=== PATIENT | male | born 1970 | race Caucasian/White ===

== ENCOUNTER 2019-10-08 12:14 | Emergency (ER) | payer MEDICAID ==
[~2019-10-08] VITALS: Ht 182.9 cm; Wt 128.6 kg
[~2019-10-08 12:14] MED LIST: TRAM50TA2 PO
[2019-10-08 14:02] VITALS: BP 124/70
== END 2019-10-08 14:38 | disposition home or self-care (01) ==
LOC: ER 12:14
DX: R18.8 Other ascites (principal); R06.02 Shortness of breath; Z72.89 Other problems related to lifestyle; Z91.030 Bee allergy status; Z79.899 Other long term (current) drug therapy
CPT/HCPCS: 49083; 99285

== ENCOUNTER 2019-10-09 19:31 | Inpatient (IN) | payer MEDICAID ==
[~2019-10-09] VITALS: Ht 182.9 cm; Wt 132.5 kg
[2019-10-09 20:24] LABS: EOSINOPHILS # (AUTO) 0.3 X10'3 (0-0.9); EOSINOPHILS % (AUTO) 2.8 % (0-6); MONOCYTES # (AUTO) 1.5 X10'3 (0-0.9)
[2019-10-09 20:25] LABS: BASOPHILS # (AUTO) 0.1 X10'3 (0-0.2); BASOPHILS % (AUTO) 0.5 % (0-1); HEMATOCRIT 30.5 % (42.0-52.0); HEMOGLOBIN 10.7 g/dl (14.0-17.9); LYMPHOCYTES # (AUTO) 0.8 X10'3 (1.1-4.8); LYMPHOCYTES % (AUTO) 7.2 % (21-51); MEAN CORPUSCULAR HEMOGLOBIN 38.4 PG (27.0-31.0); MEAN CORPUSCULAR HGB CONC 35.2 g/dL (33.0-36.5); MEAN CORPUSCULAR VOLUME 108.9 FL (78-98); MEAN PLATELET VOLUME 10.4 FL (7.4-10.4); MONOCYTES % (AUTO) 13.4 % (2-12); NEUTROPHILS # (AUTO) 8.6 X10'3 (1.8-7.7); NEUTROPHILS % (AUTO) 76.1 % (42-75); PLATELET COUNT 98 X10'3 (140-440); RED CELL DISTRIBUTION WIDTH 16.5 % (11.5-14.5); WHITE BLOOD COUNT 11.3 X10'3 (4.5-11.0)
[2019-10-09 20:34] LABS: D-DIMER 7.86 MG/L FEU (0-0.50); PARTIAL THROMBOPLASTIN TIME 43 SECONDS (22-32)
[2019-10-09 20:35] LABS: BLOOD UREA NITROGEN 37 MG/DL (7-18); CHLORIDE 87 MMOL/L (99-107); CREATININE 1.31 MG/DL (0.60-1.10); TOTAL CARBON DIOXIDE 23.8 MMOL/L (24-32)
[2019-10-09 20:36] LABS: ALANINE AMINOTRANSFERASE 85 U/L (12-78); ALBUMIN 2.1 G/DL (3.4-5.0); ALKALINE PHOSPHATASE 214 IU/L (46-116); BILIRUBIN,TOTAL 24.4 MG/DL (0.1-1.0); BUN/CREATININE RATIO 28.2 (5.4-32.0); CALCIUM 8.4 MG/DL (8.5-10.1); eGFR 58 ML/MIN
[2019-10-09 20:40] LABS: ALBUMIN/GLOBULIN RATIO 0.5 (1.1-1.5); LIPASE 1606 U/L (73-393)
[2019-10-09 20:52] LABS: ASPARTATE AMINO TRANSFERASE 215 U/L (10-37)
[2019-10-09 20:53] LABS: ANION GAP 9 (8-16); ETHANOL < 0.010 GM/DL (0.0-0.010); GLUCOSE 161 MG/DL (70-104)
[2019-10-09 20:54] LABS: POTASSIUM 5.5 MMOL/L (3.5-5.1); TOTAL PROTEIN 6.4 G/DL (6.4-8.2)
[2019-10-09 20:59] LABS: SODIUM 120 MMOL/L (135-145)
[2019-10-09 22:22] LABS: TRIGLYCERIDES 51 MG/DL (20-135)
[2019-10-09] MEDS ORDERED: LIDOcaine 2% 10ml TOPICAL JELLY (Urojet) MM ONE (23:30)
[2019-10-09] MEDS ORDERED: dextrose 50%-water 50ml dispensing syringe IV PRN (23:45)
[2019-10-09] MEDS ORDERED: LORazepam 1 MG tablet PO PRN (23:45)
[2019-10-09] MEDS ORDERED: mag hydrox/Alum hydrox/simeth 30ml oral suspension PO PRN (23:45)
[2019-10-09] MEDS ORDERED: ondansetron/PF 4mg/2ml inj IV PRN (23:45)
[2019-10-09] MEDS ORDERED: potassium CL 10mEq/100ml bag 100 ML IV PRN ×2 (23:45)
[2019-10-09] MEDS ORDERED: magnesium 4gm in 100ml NS 100 ML IV PRN (23:45)
[2019-10-09] MEDS ORDERED: haloperidol 5mg tablet PO PRN (23:45)
[2019-10-09] MEDS ORDERED: potassium Cl 20 mEq SR tablet PO PRN ×2 (23:45)
[2019-10-09] MEDS ORDERED: magnesium Cl slow-release 64mg tablet PO PRN (23:45)
[2019-10-09] MEDS ORDERED: acetaminophen 325mg tablet PO PRN (23:45)
[2019-10-09] MEDS ORDERED: thiamine 100mg/ml 2ml inj. IV ONE (23:45)
[2019-10-09] MEDS ORDERED: magnesium hydroxide 30ml (MOM) UD suspension PO PRN (23:45)
[2019-10-09] MEDS ORDERED: LORazepam 2 mg/ml vial IV PRN (23:45)
[2019-10-09] MEDS ORDERED: magnesium 2GM in 50ml NS 50 ML IV PRN (23:45)
[2019-10-10 00:11] LABS: CLARITY,URINE SLIGHTLY CLOUDY (Clear); COLOR,URINE AMBER (Yellow); GLUCOSE, URINE 100 mg/dl (Neg); KETONES,URINE TRACE mg/dl (Neg); LEUKOCYTE ESTERASE ,URINE NEGATIVE (Neg); NITRITES, URINE NEGATIVE (Neg); OCCULT BLOOD,URINE NEGATIVE (Neg); PH,URINE 5.5 (4.8-8.0); PROTEIN,URINE NEGATIVE (Neg); UROBILINOGEN,URINE 0.2 E.U/dL (0.2-1.0)
[2019-10-10 00:13] LABS: UA COLLECTION TYPE FOLEY CATH
[2019-10-10 00:18] LABS: URINE AMPHETAMINE SCREEN NEGATIVE (Neg); URINE BARBITUATE SCREEN NEGATIVE (Neg); URINE BENZODIAZEPINES SCREEN NEGATIVE (Neg); URINE CANNABINOID SCREEN NEGATIVE (Neg); URINE COCAINE SCREEN NEGATIVE (Neg); URINE METHADONE SCREEN NEGATIVE (Neg); URINE OPIATE SCREEN NEGATIVE (Neg); URINE PHENCYCLIDINE SCREEN NEGATIVE (Neg)
[2019-10-10 00:19] LABS: AMORPHOUS URATES 2+; FINE GRANULAR CAST 0-3 /LPF (NEGATIVE)
[2019-10-10 00:21] LABS: SQUAMOUS EPITHELIAL CELL,UR FEW /LPF (FEW); TRANSITIONAL EPI CELLS,URINE FEW /HPF
[2019-10-10 00:28] LABS: OSMOLALITY UA 368 MOSM/K (50-1400)
[2019-10-10 00:29] LABS: BACTERIA,URINE NONE SEEN /HPF (Neg); RBC,URINE NONE SEEN /HPF (0-2); WBC,URINE 0-4 /HPF (0-4)
[2019-10-10 00:30] LABS: SODIUM,URINE RANDOM < 15 MEQ/L
[2019-10-10 01:30] VITALS: BP 123/62
[2019-10-10] MEDS ORDERED: SPIR50TA5 PO (01:42)
[2019-10-10] MEDS ORDERED: BUME1TAB34 PO (01:42)
[2019-10-10] MEDS ORDERED: RIFA550T PO (01:42)
[2019-10-10] MEDS ORDERED: FOLI0.4T2 PO (01:42)
[2019-10-10] MEDS ORDERED: LACT10SO PO (01:42)
[2019-10-10] MEDS ORDERED: CIPR-230 PO (01:42)
[2019-10-10] MEDS ORDERED: SIME125C88 CORPAK (01:42)
[2019-10-10] MEDS ORDERED: TENO300T5 PO (01:42)
[2019-10-10] MEDS ORDERED: THIA100T70 PO (01:42)
[2019-10-10] MEDS ORDERED: thiamine 100mg tablet PO ONE (02:45)
[2019-10-10 05:55] LABS: EOSINOPHILS # (AUTO) 0.3 X10'3 (0-0.9); HEMOGLOBIN 10.6 g/dl (14.0-17.9); MONOCYTES # (AUTO) 1.2 X10'3 (0-0.9); NEUTROPHILS # (AUTO) 7.7 X10'3 (1.8-7.7); RED CELL DISTRIBUTION WIDTH 16.4 % (11.5-14.5)
[2019-10-10] MEDS ORDERED: LIDOcaine 2% 10ml TOPICAL JELLY (Urojet) TP ONE (05:55)
[2019-10-10 05:56] LABS: BASOPHILS % (AUTO) 0.1 % (0-1); EOSINOPHILS % (AUTO) 2.8 % (0-6); HEMATOCRIT 30.1 % (42.0-52.0); LYMPHOCYTES # (AUTO) 0.7 X10'3 (1.1-4.8); LYMPHOCYTES % (AUTO) 7.1 % (21-51); MEAN CORPUSCULAR HEMOGLOBIN 38.2 PG (27.0-31.0); MEAN CORPUSCULAR HGB CONC 35.2 g/dL (33.0-36.5); MEAN CORPUSCULAR VOLUME 108.6 FL (78-98); MEAN PLATELET VOLUME 10.2 FL (7.4-10.4); MONOCYTES % (AUTO) 12.5 % (2-12); NEUTROPHILS % (AUTO) 77.5 % (42-75); PLATELET COUNT 102 X10'3 (140-440); RED BLOOD COUNT 2.77 X10'6 (4.70-6.10)
[2019-10-10 06:00] VITALS: BP 110/45
[2019-10-10 06:07] LABS: ALANINE AMINOTRANSFERASE 85 U/L (12-78); ALBUMIN 2.1 G/DL (3.4-5.0); ALKALINE PHOSPHATASE 205 IU/L (46-116); ANION GAP 4 (8-16); BILIRUBIN,TOTAL 23.9 MG/DL (0.1-1.0); BLOOD UREA NITROGEN 40 MG/DL (7-18); CALCIUM 8.2 MG/DL (8.5-10.1); CHLORIDE 88 MMOL/L (99-107); MAGNESIUM 2.3 MG/DL (1.5-2.4); TOTAL CARBON DIOXIDE 23.7 MMOL/L (24-32)
--- NOTE | 2019-10-10 06:20 | NUR ---
Problems reprioritized. Patient report given, questions answered & plan of care reviewed with Americo RN.
[2019-10-10 06:21] LABS: ALBUMIN/GLOBULIN RATIO 0.5 (1.1-1.5); ASPARTATE AMINO TRANSFERASE 195 U/L (10-37); BUN/CREATININE RATIO 27.2 (5.4-32.0); CREATININE 1.47 MG/DL (0.60-1.10); GLUCOSE 88 MG/DL (70-104); POTASSIUM 5.9 MMOL/L (3.5-5.1); eGFR 51 ML/MIN
[2019-10-10 06:24] LABS: SODIUM 116 MMOL/L (135-145)
--- NOTE | 2019-10-10 06:32 | NUR ---
PAGER ID: [phone] MESSAGE: DR. HERNANDEZ, [id number]/RUDDY, NA+ 116. ANNA [phone]. TY
[2019-10-10] MEDS ORDERED: sodium polystyrene sulfonate 15gm/60ml oral suspension PO ONE (06:35)
--- NOTE | 2019-10-10 06:35 | NUR ---
PAGER ID: [phone] MESSAGE: DR. HERNANDEZ, PLEASE CALL [id number] R/T NEW ORDERS. TY
[2019-10-10] MEDS ORDERED: SODIUM ZIRCONIUM CYCLOSILICATE 10 GM POWD.PACK PO ONE ×3 (06:45→17:25)
[2019-10-10 07:00] LABS: LIPASE 1611 U/L (73-393)
[2019-10-10] MEDS: HYDROcodone/acetaminophen 5mg/325mg tablet PO PRN (07:30)
[2019-10-10] MEDS ORDERED: sodium chloride 3% IV.soln 100 ML IV SCH ×2 (07:40→13:20)
[2019-10-10] MEDS ORDERED: epiNEPHrine 0.1mg/ml 10ml syringe ONE (08:00)
[2019-10-10] MEDS ORDERED: sod chloride 0.9% 10ml flush syringe IV ONE (08:00)
[2019-10-10] MEDS ORDERED: bumetanide 0.25mg/ml 4ml vial IV SCH (08:00)
[2019-10-10] MEDS: K and/or MAG REPLACEMENT MC SCH ×2 (08:00→20:00)
[2019-10-10] MEDS: multivitamins, therapeutics tablet PO SCH (08:38)
[2019-10-10] MEDS: thiamine 100mg tablet PO SCH (08:38)
[2019-10-10] MEDS: folic acid 1mg tablet PO SCH (08:39)
[2019-10-10 10:09] LABS: ANISOCYTOSIS 1+; PLATELET ESTIMATE DECREASED; TOTAL CELLS COUNTED 100
[2019-10-10 10:10] LABS: LARGE PLATELETS FEW; TOXIC GRANULATION 3+
[2019-10-10 10:11] LABS: SMUDGE CELLS FEW
[2019-10-10 11:00] VITALS: BP 100/34
[2019-10-10 11:05] VITALS: BP 110/56
[2019-10-10 11:08] LABS: ANION GAP 6 (8-16); BLOOD UREA NITROGEN 46 MG/DL (7-18); BUN/CREATININE RATIO 24.7 (5.4-32.0); CHLORIDE 87 MMOL/L (99-107); CREATININE 1.86 MG/DL (0.60-1.10); GLUCOSE 85 MG/DL (70-104); TOTAL CARBON DIOXIDE 23.6 MMOL/L (24-32); eGFR 38 ML/MIN
[2019-10-10 11:09] LABS: ALBUMIN 2.1 G/DL (3.4-5.0); CALCIUM 8.2 MG/DL (8.5-10.1)
[2019-10-10 11:10] LABS: SODIUM 117 MMOL/L (135-145)
--- NOTE | 2019-10-10 11:20 | NUR ---
Critical lab values taken from lab, reported to primary RN.
--- NOTE | 2019-10-10 11:27 | NUR ---
PAGER ID: [phone] MESSAGE: DR. MEDINA, [id number], REPEAT NA+ 117, K+ 6.0. ANNA [id number]. TY
[2019-10-10] MEDS ORDERED: sodium chloride 3% IV.soln 100 ML IV ONE (13:26)
--- NOTE | 2019-10-10 14:39 | NUR ---
PAGER ID: [phone] MESSAGE: DR. MEDINA, 2176V/DR. MARY FOX ORDERED NPO THIS AM. MAKING SURE THATS WHAT YOU WANTED. ANNA [id number], HAS CLEAR LIQUID DIET ORDER WITH 1LITER FLUID RESTRICTION. TY
[2019-10-10 15:00] VITALS: BP 107/47
--- NOTE | 2019-10-10 15:05 | NUR ---
DISCUSSED SOMEONE BRINGING HID MEDICATION VIREAD TO HOSPITAL TO BE ADM, RE:WE DON'T HAVE IT HERE. STATES "I WILL CALL SOMEONE TO DO THAT"
--- NOTE | 2019-10-10 15:52 | NUR ---
Patient in room PCU 3024. I have received report from Americo YOUNG and had the opportunity to ask questions and assume patient care. Patient awake in bed and watching TV. No complaints at this time. All immediate needs met.
--- NOTE | 2019-10-10 15:52 | NUR ---
Problems reprioritized. Patient report given, questions answered & plan of care reviewed with HECTOR TA.
--- NOTE | 2019-10-10 15:52 | NUR ---
Patient in room PCU 3024. I have received report from Americo YOUNG and had the opportunity to ask questions and assume patient care.
--- NOTE | 2019-10-10 16:35 | NUR ---
At assumption of care, I agree with previous RN physical assessment.
--- NOTE | 2019-10-10 16:37 | NUR ---
At assumption of care I agree with previous nurse's physical assessment.
[2019-10-10 17:02] LABS: ALBUMIN 2.1 G/DL (3.4-5.0); ANION GAP 7 (8-16); BLOOD UREA NITROGEN 48 MG/DL (7-18); CALCIUM 8.6 MG/DL (8.5-10.1); CHLORIDE 86 MMOL/L (99-107)
[2019-10-10 17:05] LABS: BUN/CREATININE RATIO 23.8 (5.4-32.0); CREATININE 2.02 MG/DL (0.60-1.10); GLUCOSE 80 MG/DL (70-104); POTASSIUM 5.7 MMOL/L (3.5-5.1); eGFR 35 ML/MIN
[2019-10-10 17:07] LABS: SODIUM 116 MMOL/L (135-145)
--- NOTE | 2019-10-10 17:14 | NUR ---
Paged Dr. Archer: PAGER ID: [phone] MESSAGE: RE: Wil Brandt [id number]. Critical lab: Na 116. Thank you. May [id number]
[2019-10-10] MEDS ORDERED: TENOFOVIR DISOPROXIL FUMARATE 300 MG PO ONE (17:40)
[2019-10-10] MEDS ORDERED: normal saline 1000ml 1,000 ML IVB ONE ×2 (17:49→23:35)
[2019-10-10 18:00] VITALS: BP 116/57
--- NOTE | 2019-10-10 18:09 | NUR ---
Problems reprioritized. Patient report given, questions answered & plan of care reviewed with HECTOR Iniguez.
--- NOTE | 2019-10-10 18:09 | NUR ---
Problems reprioritized. Patient report given, questions answered & plan of care reviewed with HECTOR Iniguez. Patient stable at transfer of care.
[2019-10-10 19:18] LABS: BLOOD UREA NITROGEN 50 MG/DL (7-18); BUN/CREATININE RATIO 23.7 (5.4-32.0); CALCIUM 8.3 MG/DL (8.5-10.1); CREATININE 2.11 MG/DL (0.60-1.10); eGFR 33 ML/MIN
[2019-10-10 19:28] LABS: GLUCOSE 143 MG/DL (70-104); POTASSIUM 5.6 MMOL/L (3.5-5.1)
[2019-10-10 19:31] LABS: ANION GAP 9 (8-16); CHLORIDE 85 MMOL/L (99-107)
[2019-10-10 19:34] LABS: SODIUM 117 MMOL/L (135-145)
[2019-10-10] MEDS: rifaximin 550mg tablet PO SCH (20:08)
[2019-10-10] MEDS: lactulose 20gm/30ml cup PO SCH (20:08)
[2019-10-10 20:20] LABS: CLARITY,URINE CLOUDY (Clear); COLOR,URINE AMBER (Yellow); GLUCOSE, URINE 100 mg/dl (Neg); KETONES,URINE TRACE mg/dl (Neg); LEUKOCYTE ESTERASE ,URINE SMALL (Neg); NITRITES, URINE POSITIVE (Neg); OCCULT BLOOD,URINE LARGE (Neg); PH,URINE 6.5 (4.8-8.0); PROTEIN,URINE >=300 mg/dl (Neg)
[2019-10-10 20:33] LABS: UA COLLECTION TYPE CLN CATCH MIDSTREAM
[2019-10-10 20:36] LABS: RBC,URINE TNTC /HPF (0-2)
[2019-10-10 20:37] LABS: SQUAMOUS EPITHELIAL CELL,UR MODERATE /LPF (FEW); TRANSITIONAL EPI CELLS,URINE MODERATE /HPF
[2019-10-10 20:38] LABS: AMORPHOUS URATES 2+; BACTERIA,URINE FEW /HPF (Neg); WBC,URINE 0-4 /HPF (0-4)
[2019-10-10 20:39] LABS: CAL OXALATE CRYSTALS 1+ /HPF (NEGATIVE)
--- NOTE | 2019-10-10 21:32 | NUR ---
called lab to check on urine lab results. was just informed that the sample sent earlier did not have enough volume to run some of the labs. Lab did not relay this information before liter bolus given. waiting for urine to collect to send next sample.
[2019-10-10 21:58] LABS: UA EOSINOPHILS NO EOS /HPF
[2019-10-10 22:55] LABS: OSMOLALITY UA 324 MOSM/K (50-1400)
[2019-10-10 22:57] LABS: SODIUM,URINE RANDOM < 15 MEQ/L
[2019-10-10 23:06] LABS: ANION GAP 7 (8-16); BLOOD UREA NITROGEN 53 MG/DL (7-18); BUN/CREATININE RATIO 25.6 (5.4-32.0); CALCIUM 8.1 MG/DL (8.5-10.1); CHLORIDE 86 MMOL/L (99-107); CREATININE 2.07 MG/DL (0.60-1.10); GLUCOSE 122 MG/DL (70-104); POTASSIUM 5.5 MMOL/L (3.5-5.1); eGFR 34 ML/MIN
[2019-10-10 23:07] LABS: SODIUM 115 MMOL/L (135-145)
--- NOTE | 2019-10-10 23:55 | NUR ---
na 115, orders to repeat NS bolus and recheck labs
--- NOTE | 2019-10-11 01:07 | NUR ---
iv went bad in middle of bolus, new iv started and bolus now finishing. bed bath given, linens changed. abdominal dressings changed, old ones were saturated with yellow drainage, had been leaking also to bed.
[2019-10-11 01:58] LABS: BASOPHILS # (AUTO) 0.1 X10'3 (0-0.2); BASOPHILS % (AUTO) 0.5 % (0-1); EOSINOPHILS # (AUTO) 0.3 X10'3 (0-0.9); EOSINOPHILS % (AUTO) 2.4 % (0-6); HEMATOCRIT 30.8 % (42.0-52.0); HEMOGLOBIN 10.8 g/dl (14.0-17.9); MEAN CORPUSCULAR HEMOGLOBIN 38.7 PG (27.0-31.0); MEAN CORPUSCULAR HGB CONC 34.9 g/dL (33.0-36.5); MEAN CORPUSCULAR VOLUME 111.1 FL (78-98); MEAN PLATELET VOLUME 10.1 FL (7.4-10.4); MONOCYTES # (AUTO) 1.1 X10'3 (0-0.9); MONOCYTES % (AUTO) 10.6 % (2-12); NEUTROPHILS # (AUTO) 8.2 X10'3 (1.8-7.7); NEUTROPHILS % (AUTO) 77.5 % (42-75); PLATELET COUNT 103 X10'3 (140-440); RED BLOOD COUNT 2.78 X10'6 (4.70-6.10); RED CELL DISTRIBUTION WIDTH 16.2 % (11.5-14.5); WHITE BLOOD COUNT 10.6 X10'3 (4.5-11.0)
[2019-10-11 02:00] VITALS: BP 120/55
[2019-10-11 02:21] LABS: ALANINE AMINOTRANSFERASE 85 U/L (12-78); ALKALINE PHOSPHATASE 199 IU/L (46-116); ANION GAP 8 (8-16); CALCIUM 7.8 MG/DL (8.5-10.1); CHLORIDE 86 MMOL/L (99-107); CREATININE 2.02 MG/DL (0.60-1.10); MAGNESIUM 2.3 MG/DL (1.5-2.4); TOTAL CARBON DIOXIDE 21.7 MMOL/L (24-32); eGFR 35 ML/MIN
[2019-10-11 02:32] LABS: OSMOLALITY UA 318 MOSM/K (50-1400)
[2019-10-11 02:36] LABS: SODIUM,URINE RANDOM < 15 MEQ/L
[2019-10-11 02:39] LABS: ASPARTATE AMINO TRANSFERASE 224 U/L (10-37)
[2019-10-11 02:41] LABS: ALBUMIN/GLOBULIN RATIO 0.4 (1.1-1.5); BLOOD UREA NITROGEN 51 MG/DL (7-18); BUN/CREATININE RATIO 25.2 (5.4-32.0); GLUCOSE 103 MG/DL (70-104); PHOSPHORUS 5.7 MG/DL (2.3-4.5); TOTAL PROTEIN 6.9 G/DL (6.4-8.2)
[2019-10-11 02:51] LABS: BILIRUBIN,TOTAL 27.2 MG/DL (0.1-1.0); POTASSIUM 5.3 MMOL/L (3.5-5.1); SODIUM 116 MMOL/L (135-145)
[2019-10-11 03:45] LABS: TOTAL CELLS COUNTED 100
[2019-10-11 03:46] LABS: ANISOCYTOSIS 1+; BURR CELLS 1+; PLATELET ESTIMATE DECREASED; TARGET CELLS FEW
[2019-10-11 05:10] LABS: ALBUMIN 2.1 G/DL (3.4-5.0); ANION GAP 7 (8-16); BLOOD UREA NITROGEN 54 MG/DL (7-18); CHLORIDE 87 MMOL/L (99-107); TOTAL CARBON DIOXIDE 22.3 MMOL/L (24-32)
[2019-10-11 05:11] LABS: BUN/CREATININE RATIO 25.1 (5.4-32.0); CREATININE 2.15 MG/DL (0.60-1.10); GLUCOSE 95 MG/DL (70-104); POTASSIUM 5.3 MMOL/L (3.5-5.1); eGFR 33 ML/MIN
[2019-10-11 05:14] LABS: SODIUM 116 MMOL/L (135-145)
--- NOTE | 2019-10-11 06:14 | NUR ---
Patient in room PCU 3024. I have received report from Geetha YOUNG and had the opportunity to ask questions and assume patient care. Patient awake in bed with no complaints at this time. All immediate needs met.
--- NOTE | 2019-10-11 06:14 | NUR ---
Problems reprioritized. Patient report given, questions answered & plan of care reviewed with Bushra YOUNG.
--- NOTE | 2019-10-11 06:30 | NUR ---
Patient in room PCU 3024. I have received report from Geetha YOUNG and had the opportunity to ask questions and assume patient care. Patient was resting comfortably in bed and no needs at this time. Will continue to monitor.
[2019-10-11 07:00] VITALS: BP 120/62
[2019-10-11] MEDS ORDERED: TENOFOVIR DISOPROXIL FUMARATE 300 MG PO SCH (08:00)
[2019-10-11] MEDS ORDERED: folic acid 1mg tablet PO SCH (08:00)
[2019-10-11] MEDS: K and/or MAG REPLACEMENT MC SCH ×2 (08:00→20:00)
[2019-10-11 08:48] LABS: LIPASE 1715 U/L (73-393)
[2019-10-11] MEDS: multivitamins, therapeutics tablet PO SCH (08:55)
[2019-10-11] MEDS: lactulose 20gm/30ml cup PO SCH ×3 (08:55→21:13)
[2019-10-11] MEDS: folic acid 1mg tablet PO SCH (08:56)
[2019-10-11] MEDS: rifaximin 550mg tablet PO SCH ×2 (09:40→21:13)
[2019-10-11] MEDS: thiamine 100mg tablet PO SCH (09:40)
[2019-10-11] MEDS: albumin (human) 25% 100 ML IV solution IV SCH ×2 (09:42→21:13)
[2019-10-11 11:00] VITALS: BP 126/67
[2019-10-11 11:01] LABS: ALBUMIN 2.3 G/DL (3.4-5.0); ANION GAP 6 (8-16); BLOOD UREA NITROGEN 57 MG/DL (7-18); CALCIUM 7.9 MG/DL (8.5-10.1); CHLORIDE 86 MMOL/L (99-107); SODIUM 115 MMOL/L (135-145); TOTAL CARBON DIOXIDE 22.9 MMOL/L (24-32)
[2019-10-11 11:02] LABS: BUN/CREATININE RATIO 24.7 (5.4-32.0); CREATININE 2.31 MG/DL (0.60-1.10); GLUCOSE 114 MG/DL (70-104); POTASSIUM 5.2 MMOL/L (3.5-5.1); eGFR 30 ML/MIN
--- NOTE | 2019-10-11 11:10 | NUR ---
Critical lab: Sodium 115. Notified Dr. Recio.
--- NOTE | 2019-10-11 11:15 | NUR ---
Wound care came and addressed puncture sites from paracentesis. Attached drainage bags and attached to Mckeon bags for drainage, skin is dry
[2019-10-11 15:00] VITALS: BP 121/62
[2019-10-11 17:04] LABS: ALBUMIN 2.5 G/DL (3.4-5.0); ANION GAP 6 (8-16); BLOOD UREA NITROGEN 58 MG/DL (7-18); CALCIUM 8.3 MG/DL (8.5-10.1); CHLORIDE 86 MMOL/L (99-107); TOTAL CARBON DIOXIDE 21.8 MMOL/L (24-32)
[2019-10-11 17:23] LABS: SODIUM 114 MMOL/L (135-145)
[2019-10-11 17:27] LABS: BUN/CREATININE RATIO 27.6 (5.4-32.0); GLUCOSE 104 MG/DL (70-104); eGFR 33 ML/MIN
--- NOTE | 2019-10-11 17:29 | NUR ---
Critical lab: Sodium 114. Notified Dr. Recio
--- NOTE | 2019-10-11 18:09 | NUR ---
Problems reprioritized. Patient report given, questions answered & plan of care reviewed with HECTOR Iniguez. Patient stable at transfer of care.
--- NOTE | 2019-10-11 18:09 | NUR ---
Problems reprioritized. Patient report given, questions answered & plan of care reviewed with Geetha YOUNG. Patient was stable at transfer.
--- NOTE | 2019-10-11 18:35 | NUR ---
[place] documentation: I have reviewed and agree with all interventions, assessments performed and documented by Betina YOUNG. [place] Medication Administration: For this medication-pass time frame, all medication were reviewed, dispensed, administered and documented per hospital policy by HECTOR Moffett.
[2019-10-11 18:55] VITALS: BP 116/62
[2019-10-11 23:04] LABS: ALBUMIN 3.1 G/DL (3.4-5.0); ANION GAP 11 (8-16); BLOOD UREA NITROGEN 58 MG/DL (7-18); BUN/CREATININE RATIO 26.1 (5.4-32.0); CALCIUM 8.3 MG/DL (8.5-10.1); CHLORIDE 83 MMOL/L (99-107); CREATININE 2.22 MG/DL (0.60-1.10); eGFR 31 ML/MIN
[2019-10-11 23:09] LABS: GLUCOSE 116 MG/DL (70-104)
[2019-10-11 23:10] LABS: SODIUM 114 MMOL/L (135-145)
[2019-10-12 03:05] VITALS: BP 102/53
[2019-10-12 05:58] LABS: ALANINE AMINOTRANSFERASE 76 U/L (12-78); ALBUMIN 2.8 G/DL (3.4-5.0); ALKALINE PHOSPHATASE 165 IU/L (46-116); ANION GAP 11 (8-16); BLOOD UREA NITROGEN 61 MG/DL (7-18); BUN/CREATININE RATIO 23.7 (5.4-32.0); CALCIUM 8.2 MG/DL (8.5-10.1); CHLORIDE 83 MMOL/L (99-107); CREATININE 2.57 MG/DL (0.60-1.10); MAGNESIUM 2.6 MG/DL (1.5-2.4); TOTAL CARBON DIOXIDE 20.7 MMOL/L (24-32); eGFR 27 ML/MIN
[2019-10-12 06:18] LABS: ASPARTATE AMINO TRANSFERASE 176 U/L (10-37); GLUCOSE 94 MG/DL (70-104); LIPASE 2559 U/L (73-393); POTASSIUM 5.2 MMOL/L (3.5-5.1); TOTAL PROTEIN 5.7 G/DL (6.4-8.2)
[2019-10-12 06:24] LABS: SODIUM 115 MMOL/L (135-145)
--- NOTE | 2019-10-12 06:33 | NUR ---
PT WOKE A LITTLE CONFUSED, POSSIBLY DUE TO THE ATIVAN LAST NIGHT. REORIENTED EASILY. UP TO COMMODE. PT WIPED SELF DOWN WITH WIPES. SETTLED PT TO CHAIR.
--- NOTE | 2019-10-12 06:38 | NUR ---
Problems reprioritized. Patient report given, questions answered & plan of care reviewed with Rafael YOUNG.
--- NOTE | 2019-10-12 06:44 | NUR ---
Patient in room PCU 3024. I have received report from Geetha YOUNG and had the opportunity to ask questions and assume patient care. Patient resting with no needs at this time.
--- NOTE | 2019-10-12 06:49 | NUR ---
Critical value Na 115, reported to July, no new orders at this time
[2019-10-12 06:53] LABS: BASOPHILS % (AUTO) 0.3 % (0-1); EOSINOPHILS # (AUTO) 0.2 X10'3 (0-0.9); EOSINOPHILS % (AUTO) 3.5 % (0-6); HEMATOCRIT 27.4 % (42.0-52.0); HEMOGLOBIN 9.7 g/dl (14.0-17.9); LYMPHOCYTES # (AUTO) 0.6 X10'3 (1.1-4.8); LYMPHOCYTES % (AUTO) 8.4 % (21-51); MEAN CORPUSCULAR HEMOGLOBIN 38.9 PG (27.0-31.0); MEAN CORPUSCULAR HGB CONC 35.4 g/dL (33.0-36.5); MEAN CORPUSCULAR VOLUME 110.1 FL (78-98); MEAN PLATELET VOLUME 9.6 FL (7.4-10.4); MONOCYTES # (AUTO) 0.9 X10'3 (0-0.9); MONOCYTES % (AUTO) 12.3 % (2-12); NEUTROPHILS # (AUTO) 5.3 X10'3 (1.8-7.7); NEUTROPHILS % (AUTO) 75.5 % (42-75); PLATELET COUNT 74 X10'3 (140-440); RED BLOOD COUNT 2.49 X10'6 (4.70-6.10); RED CELL DISTRIBUTION WIDTH 16.1 % (11.5-14.5)
[2019-10-12 07:37] VITALS: BP 104/49
[2019-10-12 07:59] LABS: ANISOCYTOSIS 1+; PLATELET ESTIMATE DECREASED
[2019-10-12 08:00] LABS: ACANTHOCYTES FEW; ELLIPTOCYTES FEW
[2019-10-12] MEDS: K and/or MAG REPLACEMENT MC SCH ×2 (08:00→20:00)
[2019-10-12 08:02] LABS: BURR CELLS 2+
[2019-10-12] MEDS: lactulose 20gm/30ml cup PO SCH ×3 (09:50→20:48)
[2019-10-12] MEDS: rifaximin 550mg tablet PO SCH ×2 (09:51→20:48)
[2019-10-12] MEDS: folic acid 1mg tablet PO SCH (09:51)
[2019-10-12] MEDS: multivitamins, therapeutics tablet PO SCH (09:51)
[2019-10-12] MEDS: thiamine 100mg tablet PO SCH (09:51)
[2019-10-12] MEDS: albumin (human) 25% 100 ML IV solution IV SCH ×2 (10:29→20:49)
--- NOTE | 2019-10-12 10:50 | NUR ---
Verbal order per Dr. Archer to D/C [place] due to patient's family unable to supply medication.
--- NOTE | 2019-10-12 11:21 | NUR ---
Returned call to patient's , Natasha. No answer, left message for retune call.
[2019-10-12] MEDS: midodrine tablet 2.5 MG TABLET PO SCH (16:46)
[2019-10-12] MEDS: octreotide 100mcg/1 ml ampule SQ SCH (16:57)
--- NOTE | 2019-10-12 17:38 | NUR ---
Nasopharanygeal swab done per MD order. Patient tolerated well. Specimen taken to lab.
[2019-10-12 17:44] VITALS: BP 110/64
--- NOTE | 2019-10-12 18:24 | NUR ---
Problems reprioritized. Patient report given, questions answered & plan of care reviewed with Nu YOUNG.
--- NOTE | 2019-10-12 18:34 | NUR ---
Received call from [facility]. Per current regulation, patient has been declined transfer due to patient not currently being on transplant list. Dr. Archer notified patient adn Dr. Recio. assistant guest services manager notified.
[2019-10-12 19:00] VITALS: BP 124/70
[2019-10-13] MEDS ORDERED: Melatonin 3mg tablet PO PRN
[2019-10-13] MEDS: octreotide 100mcg/1 ml ampule SQ SCH ×4 (00:37→23:52)
[2019-10-13] MEDS: midodrine tablet 2.5 MG TABLET PO SCH ×4 (00:37→23:52)
[2019-10-13 02:00] VITALS: BP 108/54
[2019-10-13] MEDS: HYDROcodone/acetaminophen 5mg/325mg tablet PO PRN ×2 (03:19→22:08)
[2019-10-13] MEDS: morphine 2 MG/ML inj. syringe IV PRN ×2 (03:57→08:15)
[2019-10-13 06:07] LABS: ALANINE AMINOTRANSFERASE 66 U/L (12-78); ALBUMIN 3.1 G/DL (3.4-5.0); ALKALINE PHOSPHATASE 146 IU/L (46-116); ANION GAP 9 (8-16); BLOOD UREA NITROGEN 66 MG/DL (7-18); BUN/CREATININE RATIO 26.6 (5.4-32.0); CALCIUM 8.3 MG/DL (8.5-10.1); CHLORIDE 84 MMOL/L (99-107); CREATININE 2.48 MG/DL (0.60-1.10); LIPASE 1261 U/L (73-393); TOTAL CARBON DIOXIDE 20.9 MMOL/L (24-32); eGFR 28 ML/MIN
[2019-10-13 06:10] LABS: ALBUMIN/GLOBULIN RATIO 1.3 (1.1-1.5); ASPARTATE AMINO TRANSFERASE 151 U/L (10-37); GLUCOSE 93 MG/DL (70-104); MAGNESIUM 2.6 MG/DL (1.5-2.4); POTASSIUM 4.8 MMOL/L (3.5-5.1); TOTAL PROTEIN 5.5 G/DL (6.4-8.2)
[2019-10-13 06:14] LABS: SODIUM 114 MMOL/L (135-145)
--- NOTE | 2019-10-13 06:41 | NUR ---
Problems reprioritized. Patient report given, questions answered & plan of care reviewed with Denia YOUNG.
--- NOTE | 2019-10-13 06:43 | NUR ---
Patient in room PCU 3024. I have received report from HECTOR Judge and had the opportunity to ask questions and assume patient care.
[2019-10-13 06:48] LABS: BASOPHILS % (AUTO) 0.2 % (0-1); EOSINOPHILS # (AUTO) 0.1 X10'3 (0-0.9); EOSINOPHILS % (AUTO) 1.2 % (0-6); HEMATOCRIT 28.2 % (42.0-52.0); HEMOGLOBIN 9.9 g/dl (14.0-17.9); LYMPHOCYTES # (AUTO) 0.4 X10'3 (1.1-4.8); LYMPHOCYTES % (AUTO) 7.3 % (21-51); MEAN CORPUSCULAR HEMOGLOBIN 38.6 PG (27.0-31.0); MEAN CORPUSCULAR HGB CONC 35.3 g/dL (33.0-36.5); MEAN CORPUSCULAR VOLUME 109.4 FL (78-98); MEAN PLATELET VOLUME 10.2 FL (7.4-10.4); MONOCYTES # (AUTO) 0.1 X10'3 (0-0.9); MONOCYTES % (AUTO) 2.8 % (2-12); NEUTROPHILS # (AUTO) 4.4 X10'3 (1.8-7.7); NEUTROPHILS % (AUTO) 88.5 % (42-75); PLATELET COUNT 68 X10'3 (140-440); RED BLOOD COUNT 2.58 X10'6 (4.70-6.10)
[2019-10-13 07:00] VITALS: BP 112/50
[2019-10-13] MEDS: K and/or MAG REPLACEMENT MC SCH ×2 (08:00→20:00)
[2019-10-13] MEDS: multivitamins, therapeutics tablet PO SCH (08:16)
[2019-10-13] MEDS: thiamine 100mg tablet PO SCH (08:17)
[2019-10-13] MEDS: rifaximin 550mg tablet PO SCH ×2 (08:17→20:29)
[2019-10-13] MEDS: folic acid 1mg tablet PO SCH (08:18)
[2019-10-13] MEDS: lactulose 20gm/30ml cup PO SCH ×3 (08:18→20:29)
[2019-10-13] MEDS: albumin (human) 25% 100 ML IV solution IV SCH ×2 (08:20→20:35)
[2019-10-13 08:21] LABS: PLATELET ESTIMATE DECREASED
[2019-10-13 08:23] LABS: BURR CELLS 2+; SCHISTOCYTES FEW
[2019-10-13 11:00] VITALS: BP 130/78
--- NOTE | 2019-10-13 11:23 | NUR ---
Spoke with office staff of Dr. Richardson ([employer]) regarding patient. Updated on current labs. She would like me to have Dr call the Dr transportation maintenance specialist (Dr Caldwell) at [facility] about bed placement. Will page Dr Archer regarding this information.
--- NOTE | 2019-10-13 11:33 | NUR ---
Paged Dr Archer PAGER ID: [phone] MESSAGE: Re: Wil King [id number] at [facility] would like you to call him (Dr Caldwell , option #9) Thanks Denia Negron [phone]
[2019-10-13 14:42] LABS: OSMOLALITY UA 291 MOSM/K (50-1400)
[2019-10-13 14:46] LABS: SODIUM,URINE RANDOM 25 MEQ/L
[2019-10-13 15:00] VITALS: BP 123/61
[2019-10-13] MEDS ORDERED: phytonadione inj. 10 MG in normal saline 100ml IV soln 99 ML IV ONE (17:50)
--- NOTE | 2019-10-13 17:58 | NUR ---
Paged xray Re: Wil Brandt [id number] Pt needs a stat chest xray. Thanks
--- NOTE | 2019-10-13 17:59 | NUR ---
Paged Respiratory Re: Wil García Rm [id number] Pt needs to be placed on Bipap stat. Thanks
[2019-10-13 18:00] VITALS: BP 144/60
[2019-10-13] MEDS ORDERED: HUMAN PROTHROMBIN COMPLEX PCC IV ONE (18:00)
--- NOTE | 2019-10-13 18:00 | NUR ---
Patient in room PCU 3024. I have received report from Denia YOUNG and had the opportunity to ask questions and assume patient care.
--- NOTE | 2019-10-13 18:54 | NUR ---
Problems reprioritized. Patient report given, questions answered & plan of care reviewed with HECTOR Cortez. All patient needs met at this time.
[2019-10-13] MEDS: lactobacillus rhamnosus 10,000 MMU CELLS/CAPSULE PO SCH (20:30)
[2019-10-13 22:00] VITALS: BP 131/83
[2019-10-14] VITALS (11 sets, daily range): BP systolic 115–145; BP diastolic 54–76
[2019-10-14 06:00] LABS: BASOPHILS % (AUTO) 0.1 % (0-1); EOSINOPHILS % (AUTO) 0 % (0-6); LYMPHOCYTES # (AUTO) 0.3 X10'3 (1.1-4.8); NEUTROPHILS # (AUTO) 9.7 X10'3 (1.8-7.7); WHITE BLOOD COUNT 10.7 X10'3 (4.5-11.0)
[2019-10-14 06:02] LABS: LYMPHOCYTES % (AUTO) 2.6 % (21-51); MEAN PLATELET VOLUME 10.4 FL (7.4-10.4); MONOCYTES # (AUTO) 0.8 X10'3 (0-0.9); MONOCYTES % (AUTO) 7.1 % (2-12); NEUTROPHILS % (AUTO) 90.2 % (42-75); PLATELET COUNT 52 X10'3 (140-440)
--- NOTE | 2019-10-14 06:07 | NUR ---
Problems reprioritized. Patient report given, questions answered & plan of care reviewed with Sakina YOUNG.
[2019-10-14 06:16] LABS: ALANINE AMINOTRANSFERASE 72 U/L (12-78); ALBUMIN 3.8 G/DL (3.4-5.0); ALKALINE PHOSPHATASE 139 IU/L (46-116); ANION GAP 12 (8-16); ASPARTATE AMINO TRANSFERASE 161 U/L (10-37); BILIRUBIN,TOTAL 38.2 MG/DL (0.1-1.0); BLOOD UREA NITROGEN 72 MG/DL (7-18); BUN/CREATININE RATIO 20.5 (5.4-32.0); CALCIUM 8.6 MG/DL (8.5-10.1); CHLORIDE 83 MMOL/L (99-107); CREATININE 3.52 MG/DL (0.60-1.10); GLUCOSE 83 MG/DL (70-104); LIPASE 818 U/L (73-393); MAGNESIUM 2.8 MG/DL (1.5-2.4); POTASSIUM 5.6 MMOL/L (3.5-5.1); TOTAL CARBON DIOXIDE 19.3 MMOL/L (24-32); eGFR 18 ML/MIN
[2019-10-14 06:29] LABS: SODIUM 114 MMOL/L (135-145)
--- NOTE | 2019-10-14 06:40 | NUR ---
Critical Na of 114. Tried calling Dr. Weston with the critical lab value, but the phone is busy. Will call again.
--- NOTE | 2019-10-14 06:40 | NUR ---
Patient in room PCU 3024. I have received report from HECTOR Cortez and had the opportunity to ask questions and assume patient care. Patient awake in bed and in no acute distress.
[2019-10-14 06:45] LABS: ALBUMIN/GLOBULIN RATIO 1.5 (1.1-1.5); TOTAL PROTEIN 6.3 G/DL (6.4-8.2)
[2019-10-14 06:53] LABS: HEMATOCRIT 26.5 % (42.0-52.0); HEMOGLOBIN 9.3 g/dl (14.0-17.9); MEAN CORPUSCULAR HEMOGLOBIN 38.8 PG (27.0-31.0); MEAN CORPUSCULAR HGB CONC 35.3 g/dL (33.0-36.5); MEAN CORPUSCULAR VOLUME 109.8 FL (78-98); RED BLOOD COUNT 2.41 X10'6 (4.70-6.10); RED CELL DISTRIBUTION WIDTH 15.9 % (11.5-14.5)
[2019-10-14 06:56] LABS: ANISOCYTOSIS 1+; BURR CELLS 2+; PLATELET ESTIMATE DECREASED; SCHISTOCYTES FEW
--- NOTE | 2019-10-14 07:18 | NUR ---
Paged Dr. Archer regarding patient's critical Na. PAGER ID: [phone] MESSAGE: [phone]. Wil Brandt. Critical lab value of 114 again today. Thank you. Sakina YOUNG x [phone]
[2019-10-14] MEDS: K and/or MAG REPLACEMENT MC SCH ×2 (08:00→20:00)
[2019-10-14] MEDS: albumin (human) 25% 100 ML IV solution IV SCH ×2 (09:00→19:03)
[2019-10-14] MEDS: lactobacillus rhamnosus 10,000 MMU CELLS/CAPSULE PO SCH ×2 (09:01→19:04)
[2019-10-14] MEDS: lactulose 20gm/30ml cup PO SCH ×3 (09:01→19:03)
[2019-10-14] MEDS: folic acid 1mg tablet PO SCH (09:01)
[2019-10-14] MEDS: multivitamins, therapeutics tablet PO SCH (09:02)
[2019-10-14] MEDS: thiamine 100mg tablet PO SCH (09:03)
[2019-10-14] MEDS: midodrine tablet 2.5 MG TABLET PO SCH ×3 (09:03→23:28)
[2019-10-14] MEDS: octreotide 100mcg/1 ml ampule SQ SCH ×3 (09:04→23:28)
[2019-10-14] MEDS: rifaximin 550mg tablet PO SCH ×2 (09:09→19:04)
[2019-10-14 15:59] LABS: ANION GAP 11 (8-16); BLOOD UREA NITROGEN 76 MG/DL (7-18); BUN/CREATININE RATIO 21.5 (5.4-32.0); CHLORIDE 84 MMOL/L (99-107); CREATININE 3.53 MG/DL (0.60-1.10); GLUCOSE 105 MG/DL (70-104); POTASSIUM 5.3 MMOL/L (3.5-5.1); TOTAL CARBON DIOXIDE 19.7 MMOL/L (24-32)
[2019-10-14 16:00] LABS: ALBUMIN 3.4 G/DL (3.4-5.0); CALCIUM 8.7 MG/DL (8.5-10.1); eGFR 18 ML/MIN
[2019-10-14 16:02] LABS: SODIUM 115 MMOL/L (135-145)
--- NOTE | 2019-10-14 16:16 | NUR ---
Paged Dr. Archer regarding critical Na PAGER ID: [phone] MESSAGE: [phone]. Wil Brandt. Critical lab of Na of 115. Thank you. Sakina YOUNG x [phone]
[2019-10-14] MEDS: morphine 2 MG/ML inj. syringe IV PRN ×2 (17:01→21:38)
--- NOTE | 2019-10-14 17:18 | NUR ---
Initial: patient admitted with hyponatremia history of hepatitis C, cirrhosis, EtOH, and meth. Recently had 4 liters removed by paracentesis prior to admission and another large volume paracentesis today per MD notes. MCV is 109.8, may be indicative of a folic acid or Vitamin B12 deficiency; he is receiving a multivitamin and folic acid. Sodium is low, MD is aware and reports urine osmolality has gone down. Great appetite, eating 75-100% average PO intake. Meeting nutrition needs. Recommend: 1. Continue regular diet 2. continue folic acid, thiamine, and multivitamin 3. weight per rx 4. routine bowel care Addendum: 10/14/19 at [address] Amended: Links added.
--- NOTE | 2019-10-14 18:00 | NUR ---
Patient in room PCU 3024. I have received report from nani YOUNG and had the opportunity to ask questions and assume patient care.
--- NOTE | 2019-10-14 18:08 | NUR ---
Problems reprioritized. Patient report given, questions answered & plan of care reviewed with HECTOR Cortez. Patient stable at transfer of care.
[2019-10-15 02:00] VITALS: BP 117/43
[2019-10-15] MEDS: morphine 2 MG/ML inj. syringe IV PRN ×2 (03:44→20:37)
--- NOTE | 2019-10-15 06:04 | NUR ---
Problems reprioritized. Patient report given, questions answered & plan of care reviewed with Sakina YOUNG.
[2019-10-15 06:21] LABS: BASOPHILS % (AUTO) 0.1 % (0-1); EOSINOPHILS % (AUTO) 0.1 % (0-6); HEMATOCRIT 23.6 % (42.0-52.0); HEMOGLOBIN 8.3 g/dl (14.0-17.9); LYMPHOCYTES # (AUTO) 0.3 X10'3 (1.1-4.8); LYMPHOCYTES % (AUTO) 1.9 % (21-51); MEAN CORPUSCULAR HEMOGLOBIN 38.6 PG (27.0-31.0); MEAN CORPUSCULAR HGB CONC 35.3 g/dL (33.0-36.5); MEAN CORPUSCULAR VOLUME 109.4 FL (78-98); MEAN PLATELET VOLUME 11.4 FL (7.4-10.4); MONOCYTES # (AUTO) 1.1 X10'3 (0-0.9); NEUTROPHILS # (AUTO) 12.2 X10'3 (1.8-7.7); NEUTROPHILS % (AUTO) 89.9 % (42-75); PLATELET COUNT 57 X10'3 (140-440); RED BLOOD COUNT 2.16 X10'6 (4.70-6.10); RED CELL DISTRIBUTION WIDTH 15.9 % (11.5-14.5); WHITE BLOOD COUNT 13.6 X10'3 (4.5-11.0)
[2019-10-15 06:30] LABS: ALANINE AMINOTRANSFERASE 61 U/L (12-78); ALBUMIN 3.4 G/DL (3.4-5.0); ALKALINE PHOSPHATASE 108 IU/L (46-116); ANION GAP 12 (8-16); BLOOD UREA NITROGEN 82 MG/DL (7-18); BUN/CREATININE RATIO 19.4 (5.4-32.0); CALCIUM 8.4 MG/DL (8.5-10.1); CHLORIDE 83 MMOL/L (99-107); CREATININE 4.22 MG/DL (0.60-1.10); LIPASE 1206 U/L (73-393); eGFR 15 ML/MIN
[2019-10-15 06:42] LABS: ASPARTATE AMINO TRANSFERASE 147 U/L (10-37)
[2019-10-15 06:45] LABS: ALBUMIN/GLOBULIN RATIO 1.7 (1.1-1.5); BILIRUBIN,TOTAL 32.6 MG/DL (0.1-1.0); GLUCOSE 72 MG/DL (70-104); MAGNESIUM 2.7 MG/DL (1.5-2.4); POTASSIUM 5.8 MMOL/L (3.5-5.1); TOTAL PROTEIN 5.4 G/DL (6.4-8.2)
[2019-10-15 06:48] LABS: SODIUM 115 MMOL/L (135-145)
[2019-10-15 07:00] VITALS: BP 108/51
[2019-10-15 07:09] LABS: LARGE PLATELETS FEW; PLATELET ESTIMATE DECREASED
[2019-10-15 07:10] LABS: BURR CELLS 2+
[2019-10-15] MEDS: lactulose 20gm/30ml cup PO SCH ×3 (07:42→20:37)
[2019-10-15] MEDS: multivitamins, therapeutics tablet PO SCH (07:42)
[2019-10-15] MEDS: albumin (human) 25% 100 ML IV solution IV SCH ×2 (07:42→20:00)
[2019-10-15] MEDS: folic acid 1mg tablet PO SCH (07:42)
[2019-10-15] MEDS: lactobacillus rhamnosus 10,000 MMU CELLS/CAPSULE PO SCH ×2 (07:42→20:37)
[2019-10-15] MEDS: rifaximin 550mg tablet PO SCH ×2 (07:43→20:37)
[2019-10-15] MEDS: midodrine tablet 2.5 MG TABLET PO SCH ×2 (07:43→17:07)
[2019-10-15] MEDS: K and/or MAG REPLACEMENT MC SCH ×2 (07:43→20:00)
[2019-10-15] MEDS: thiamine 100mg tablet PO SCH (07:43)
[2019-10-15] MEDS: octreotide 100mcg/1 ml ampule SQ SCH ×2 (09:54→17:08)
[2019-10-15] MEDS ORDERED: heparin 1,000unit/ml 10ml vial 10 ML IV ONE (10:36)
[2019-10-15] MEDS ORDERED: normal saline 1000ml 250 ML IV PRN (10:36)
[2019-10-15] MEDS ORDERED: epoetin 20,000 units/ml inj IV ONE (10:40)
[2019-10-15] MEDS ORDERED: heparin 1,000 units/ml 10ml inj HE ONE ×2 (10:40)
[2019-10-15 11:00] VITALS: BP 112/56
[2019-10-15] MEDS ORDERED: LIDOcaine 1%/PF 5ML 10 MG/ML VIAL ONE (12:08)
[2019-10-15] MEDS ORDERED: heparin 1,000unit/ml 10ml vial 10 ML ONE (12:08)
[2019-10-15] MEDS ORDERED: fentaNYL/PF 50MCG/1 ML 2ML syringe ONE (12:08)
--- NOTE | 2019-10-15 12:10 | NUR ---
Patient left floor for TDC placement
--- NOTE | 2019-10-15 13:03 | NUR ---
Patient back from angio
[2019-10-15 14:23] LABS: ALBUMIN 3.7 G/DL (3.4-5.0); ANION GAP 10 (8-16); BLOOD UREA NITROGEN 85 MG/DL (7-18); CALCIUM 8.5 MG/DL (8.5-10.1); CHLORIDE 83 MMOL/L (99-107); TOTAL CARBON DIOXIDE 20.6 MMOL/L (24-32)
[2019-10-15 14:24] LABS: BUN/CREATININE RATIO 18.2 (5.4-32.0); CREATININE 4.67 MG/DL (0.60-1.10); GLUCOSE 76 MG/DL (70-104); POTASSIUM 5.9 MMOL/L (3.5-5.1); eGFR 13 ML/MIN
[2019-10-15 14:29] LABS: SODIUM 114 MMOL/L (135-145)
--- NOTE | 2019-10-15 14:32 | NUR ---
Paged Dr. Archer regarding critical lab value of Na 114. PAGER ID: [phone] MESSAGE: [phone]. Critical lab value of Na of 114. Thank you. Sakina YOUNG x [phone]
[2019-10-15 15:00] VITALS: BP 107/49
[2019-10-15] MEDS ORDERED: albumin (human) 25% 100ml IV 100 ML IV PRN (18:05)
--- NOTE | 2019-10-15 18:13 | NUR ---
Problems reprioritized. Patient report given, questions answered & plan of care reviewed with HECTOR Cates. Patient getting dialysis at transfer of care.
--- NOTE | 2019-10-15 18:19 | NUR ---
Patient in room PCU 3024. I have received report from HECTOR Presley and had the opportunity to ask questions and assume patient care. Pt resting with eyes closed, assault amphibious vehicle crewman at bedside, sbp 80's, waiting for Albumin. Addendum: 10/15/19 at 1820 by Rohit Ruth RN Amended: Links added.
[2019-10-15 18:30] VITALS: BP 89/39
--- NOTE | 2019-10-15 18:30 | NUR ---
TO RECEIVE ALBUMIN BY ASSOCIATE SPA DIRECTOR Addendum: 10/15/19 at 1908 by Rohit Ruth RN Amended: Links added.
--- NOTE | 2019-10-15 19:45 | NUR ---
per ornamental metal worker helper b/p improving, dialysis stopped, plasmaphoresis, unable to pul off any fluid d/t bp Addendum: 10/15/19 at 1946 by Rhoit Ruth RN Amended: Links added.
[2019-10-15 22:30] VITALS: BP 130/64
[2019-10-16] MEDS: midodrine tablet 2.5 MG TABLET PO SCH ×2 (00:27→08:52)
[2019-10-16] MEDS: octreotide 100mcg/1 ml ampule SQ SCH ×2 (00:27→09:50)
[2019-10-16] MEDS: morphine 2 MG/ML inj. syringe IV PRN (00:28)
[2019-10-16 02:00] VITALS: BP 113/47
[2019-10-16 06:16] LABS: BASOPHILS % (AUTO) 0 % (0-1); EOSINOPHILS % (AUTO) 0.3 % (0-6); HEMOGLOBIN 7.5 g/dl (14.0-17.9); LYMPHOCYTES # (AUTO) 0.3 X10'3 (1.1-4.8); LYMPHOCYTES % (AUTO) 2.4 % (21-51); MEAN CORPUSCULAR HGB CONC 35.1 g/dL (33.0-36.5); MEAN CORPUSCULAR VOLUME 111.1 FL (78-98); MEAN PLATELET VOLUME 11.4 FL (7.4-10.4); MONOCYTES # (AUTO) 1.3 X10'3 (0-0.9); MONOCYTES % (AUTO) 9.3 % (2-12); NEUTROPHILS # (AUTO) 12.6 X10'3 (1.8-7.7); PLATELET COUNT 58 X10'3 (140-440); RED BLOOD COUNT 1.92 X10'6 (4.70-6.10); RED CELL DISTRIBUTION WIDTH 16.1 % (11.5-14.5); WHITE BLOOD COUNT 14.3 X10'3 (4.5-11.0)
[2019-10-16 06:23] LABS: HEMATOCRIT 21.3 % (42.0-52.0)
[2019-10-16 06:35] LABS: ALANINE AMINOTRANSFERASE 64 U/L (12-78); ALBUMIN 3.5 G/DL (3.4-5.0); ALKALINE PHOSPHATASE 99 IU/L (46-116); ANION GAP 15 (8-16); BLOOD UREA NITROGEN 72 MG/DL (7-18); BUN/CREATININE RATIO 15.6 (5.4-32.0); CALCIUM 8.8 MG/DL (8.5-10.1); CHLORIDE 87 MMOL/L (99-107); CREATININE 4.62 MG/DL (0.60-1.10); SODIUM 121 MMOL/L (135-145); TOTAL CARBON DIOXIDE 19.2 MMOL/L (24-32); eGFR 13 ML/MIN
--- NOTE | 2019-10-16 06:43 | NUR ---
Problems reprioritized. Patient report given, questions answered & plan of care reviewed with HECTOR Marinelli. Addendum: 10/16/19 at 0643 by Rohit Ruth RN Amended: Links added.
[2019-10-16 06:45] LABS: ALBUMIN/GLOBULIN RATIO 2.1 (1.1-1.5); ASPARTATE AMINO TRANSFERASE 148 U/L (10-37); BILIRUBIN,TOTAL 31.9 MG/DL (0.1-1.0); GLUCOSE 69 MG/DL (70-104); LIPASE 2626 U/L (73-393); MAGNESIUM 2.6 MG/DL (1.5-2.4); POTASSIUM 5.5 MMOL/L (3.5-5.1); TOTAL PROTEIN 5.2 G/DL (6.4-8.2)
[2019-10-16 07:09] LABS: ANISOCYTOSIS 1+; PLATELET ESTIMATE DECREASED; TOTAL CELLS COUNTED 100
[2019-10-16 07:11] LABS: BURR CELLS 1+; HYPOCHROMASIA 1+; POLYCHROMASIA 1+; TARGET CELLS 1+; TEAR DROP CELLS FEW
--- NOTE | 2019-10-16 07:15 | NUR ---
Morning blood glucose 60, gave 20 grams of fast acting carbohydrates to patient orally, primary nurse notified, will recheck blood sugar in 15 minutes.
--- NOTE | 2019-10-16 07:15 | NUR ---
Patient in room PCU 3024. I have received report from HECTOR Cates and had the opportunity to ask questions and assume patient care.
[2019-10-16 07:21] VITALS: BP 104/44
--- NOTE | 2019-10-16 07:30 | NUR ---
Rechecked patient glucose, glucose level 63, patient non symptomatic, primary RN notified, gave prn dextrose IV ordered, will recheck in 15 minutes.
--- NOTE | 2019-10-16 07:45 | NUR ---
Re-check of patients blood glucose, Addendum: 10/16/19 at 0833 by Mercy Teran RN Re-check of patients blood glucose 142, primary RN notified.
[2019-10-16] MEDS ORDERED: heparin 1,000unit/ml 10ml vial 10 ML IV ONE (08:00)
[2019-10-16] MEDS ORDERED: normal saline 1000ml 250 ML IV PRN (08:00)
[2019-10-16] MEDS ORDERED: heparin 1,000 units/ml 10ml inj HE ONE ×2 (08:00)
[2019-10-16] MEDS ORDERED: epoetin 20,000 units/ml inj IV ONE (08:00)
[2019-10-16] MEDS: folic acid 1mg tablet PO SCH (08:51)
[2019-10-16] MEDS: multivitamins, therapeutics tablet PO SCH (08:51)
[2019-10-16] MEDS: lactobacillus rhamnosus 10,000 MMU CELLS/CAPSULE PO SCH (08:51)
[2019-10-16] MEDS: thiamine 100mg tablet PO SCH (08:52)
[2019-10-16] MEDS: lactulose 20gm/30ml cup PO SCH (08:52)
[2019-10-16] MEDS: rifaximin 550mg tablet PO SCH (09:00)
[2019-10-16] MEDS: albumin (human) 25% 100 ML IV solution IV SCH (09:01)
[2019-10-16] MEDS ORDERED: midodrine 5mg tablet PO ONE (10:40)
[2019-10-16] MEDS: HYDROcodone/acetaminophen 5mg/325mg tablet PO PRN (10:51)
[2019-10-16 11:00] VITALS: BP 108/48
--- NOTE | 2019-10-16 11:18 | NUR ---
Pt has been restless with increased agitation. pulled out one the abd drain. Crista Abbott in to see pt. New order for midodrine once and PRN [place] given. a colostomy bag was place instead of the drain. Dr. Olea spoke to pt about code status; Pt agrees to go home under hospice care. will follow up with oncology social work.
--- NOTE | 2019-10-16 15:31 | NUR ---
Pt Coded at 1300 while receiving dialysis. Resuscitation interventions started until official orders for DNR was receive by phone by Dr. Olea since pt had agreed to change code status earlier. all resuscitation measures were stopped. Pt was declared at 1308. Kali (father) was contacted by this nurse, and Pt's was contacted by nurse supervisor wash house. [place] [facility] also contacted Ref. # [phone]. Postmortem care performed. Family in room with pt at this time.
--- NOTE | 2019-10-16 18:35 | NUR ---
Patient in room PCU 3024. I have received report from HECTOR Becerra and had the opportunity to ask questions and assume patient care. Patient has passed, the daytime RN states she has been in contact with [facility], and they are to come sweet pickle maker the patient. Awaiting their arrival. All belongings had been sent home with family. Patient is prepped for transport.
--- NOTE | 2019-10-16 19:00 | NUR ---
[facility] contacted. Pt remaining waiting to be pick up driver.
--- NOTE | 2019-10-16 21:28 | NUR ---
Mark here to collect patient.
[2019-10-18 07:12] LABS: HBSAG SCREEN Positive (Negative)
== END 2019-10-16 20:45 | disposition expired | DRG 282 ==
LOC: ER 19:31 → ED HOLD 23:44 → UNDOADMIN 10-10 00:02 → ED HOLD 10-10 00:02 → PCU 3S 10-10 00:50 → ED HOLD 10-10 00:50
PROVIDERS: ADMIT Family Medicine; ATTEND Family Medicine
PROC: 5A09357 Assistance with Respiratory Ventilation, Less than 24 Consecutive Hours, Continuous Positive Airway Pressure (ICD-10-PCS; principal; 2019-10-13)
PROC: 0W9G3ZZ Drainage of Peritoneal Cavity, Percutaneous Approach (ICD-10-PCS; 2019-10-14)
PROC: 02HV33Z Insertion of Infusion Device into Superior Vena Cava, Percutaneous Approach (ICD-10-PCS; 2019-10-15)
PROC: B548ZZA Ultrasonography of Superior Vena Cava, Guidance (ICD-10-PCS; 2019-10-15)
PROC: 5A1D70Z Performance of Urinary Filtration, Intermittent, Less than 6 Hours Per Day (ICD-10-PCS; 2019-10-15)
PROC: 5A1D70Z Performance of Urinary Filtration, Intermittent, Less than 6 Hours Per Day (ICD-10-PCS; 2019-10-16)
DX: K85.90 Acute pancreatitis without necrosis or infection, unspecified (principal); K76.7 Hepatorenal syndrome; N17.9 Acute kidney failure, unspecified; Z76.82 Awaiting organ transplant status; I95.9 Hypotension, unspecified; D69.6 Thrombocytopenia, unspecified; N18.6 End stage renal disease; E87.5 Hyperkalemia; K70.31 Alcoholic cirrhosis of liver with ascites; E87.1 Hypo-osmolality and hyponatremia; K72.90 Hepatic failure, unspecified without coma; D64.9 Anemia, unspecified; B19.20 Unspecified viral hepatitis C without hepatic coma; Z51.5 Encounter for palliative care; Z66 Do not resuscitate; Z82.49 Family history of ischemic heart disease and other diseases of the circulatory system; Z91.030 Bee allergy status; Z79.899 Other long term (current) drug therapy
CPT/HCPCS: 36415; 36556; 71045; 71046; 74176; 76700; 76937; 77001; 80048; 80053; 80305; 80320; 81001; 81003; 82140; 82570; 82948; 83690; 83735; 83880; 83930; 83935; 84100; 84300; 84478; 85025; 85379; 85610; 85730; 86885; 86900; 86901; 86920; 87081; 87207; 87340; 87635; 90935; 93005; 94660; 94760; 97112; 97116; 97161; 97530; 99285; A9270; C1751; C1769; C1894; G0378; J0171; J1644; J2270; J2354; J2405; J3010; J3430; J7030; J7131; P9047; Q4081